=== PATIENT | female | born 1950 | race Caucasian/White ===

== ENCOUNTER 2022-05-12 09:21 | Outpatient (RCR) | payer MEDICARE, SELFPAY ==
[2022-05-12 09:43] LABS: Basophils Absolute Auto 0.09 K/uL (0.00-0.30); Basophils Percent Auto 1.1 % (0.0-3.0); Eosinophils Absolute Auto 0.42 K/uL (0.00-0.50); Eosinophils Percent Auto 5.2 % (0.0-7.0); Hematocrit 45.6 % (33.0-51.0); Hemoglobin* 13.8 gm/dL (12.0-16.0); Immature Granulocytes Abs Auto 0.02 K/uL (0.00-0.30); Lymphocytes Percent Auto 18.9 % (20-44); Mean Corpuscular HGB Conc 30 gm/dL (32-36); Mean Corpuscular Hemoglobin 24 pg (26-34); Mean Corpuscular Volume 78 fL (80-100); Monocytes Percent Auto 5.1 % (0.0-11.0); Neutrophils Percent Auto 69.5 % (42.0-72.0); Platelet Count* 286 K/uL (140-440); RDW Coefficient of Variation % 19.8 % (11.5-15.5); Red Blood Count 5.82 m/uL (4.00-5.20); White Blood Count* 8.06 K/uL (4.50-11.00)
[2022-05-12 09:46] LABS: Slide Review Reflex No
== END 2022-05-18 23:59 | disposition home or self-care (01) ==
LOC: CCIC 09:21
PROVIDERS: Internal Medicine Hematology & Oncology; PCP Family Medicine; Visit Provider Internal Medicine Medical Oncology
DX: D45 Polycythemia vera (principal)
CPT/HCPCS: 36415; 85025; 99195; 99212; 99214; 99215

== ENCOUNTER 2022-12-08 13:15 | Outpatient (RCR) | payer MEDICARE, SELFPAY ==
[2022-06-20 13:17] LABS: Basophils Absolute Auto 0.09 K/uL (0.00-0.30); Eosinophils Absolute Auto 0.36 K/uL (0.00-0.50); Eosinophils Percent Auto 3.8 % (0.0-7.0); Hematocrit 43.6 % (33.0-51.0); Hemoglobin* 13.2 gm/dL (12.0-16.0); Immature Granulocytes Abs Auto 0.03 K/uL (0.00-0.30); Lymphocytes Absolute Auto 2.04 K/uL (0.90-2.90); Lymphocytes Percent Auto 21.8 % (20-44); Mean Corpuscular HGB Conc 30 gm/dL (32-36); Mean Corpuscular Hemoglobin 24 pg (26-34); Mean Corpuscular Volume 79 fL (80-100); Monocytes Percent Auto 6.1 % (0.0-11.0); Neutrophils Absolute Auto 6.28 K/uL (1.7-7.0); Platelet Count* 293 K/uL (140-440); RDW Coefficient of Variation % 17.6 % (11.5-15.5); Red Blood Count 5.55 m/uL (4.00-5.20); White Blood Count* 9.37 K/uL (4.50-11.00)
[2022-06-20 13:20] LABS: Slide Review Reflex No
[2022-08-01 13:14] LABS: Hematocrit 46.3 % (33.0-51.0); Hemoglobin* 14.2 gm/dL (12.0-16.0); Mean Corpuscular HGB Conc 31 gm/dL (32-36); Mean Corpuscular Hemoglobin 24 pg (26-34); Mean Corpuscular Volume 79 fL (80-100); Platelet Count* 304 K/uL (140-440); Red Blood Count 5.84 m/uL (4.00-5.20); White Blood Count* 8.29 K/uL (4.50-11.00)
[2022-08-01 13:15] LABS: Slide Review Reflex No
[2022-09-19 13:21] LABS: Hematocrit 42.3 % (33.0-51.0); Hemoglobin* 12.7 gm/dL (12.0-16.0); Mean Corpuscular HGB Conc 30 gm/dL (32-36); Mean Corpuscular Hemoglobin 24 pg (26-34); Mean Corpuscular Volume 79 fL (80-100); Platelet Count* 287 K/uL (140-440); Red Blood Count 5.36 m/uL (4.00-5.20); White Blood Count* 9.07 K/uL (4.50-11.00)
[2022-09-19 13:26] LABS: Slide Review Reflex No
[2022-10-27 13:50] LABS: Hematocrit 44.8 % (33.0-51.0); Hemoglobin* 13.6 gm/dL (12.0-16.0); Mean Corpuscular HGB Conc 30 gm/dL (32-36); Mean Corpuscular Hemoglobin 24 pg (26-34); Mean Corpuscular Volume 79 fL (80-100); Platelet Count* 305 K/uL (140-440); Red Blood Count 5.65 m/uL (4.00-5.20); White Blood Count* 9.05 K/uL (4.50-11.00)
[2022-10-27 13:52] LABS: Slide Review Reflex No
--- NOTE | 2022-10-31 08:43 | ONC.NURNOTE ---
Reports some constipation added metamucil per Dr Aguilar which is working only fair suggested to try Miralax reports no other concerns with hydrea continue same dose next lab and provider appt schedule
[2022-12-08 13:24] LABS: Basophils Absolute Auto 0.08 K/uL (0.00-0.30); Basophils Percent Auto 0.8 % (0.0-3.0); Eosinophils Absolute Auto 0.36 K/uL (0.00-0.50); Eosinophils Percent Auto 3.6 % (0.0-7.0); Hematocrit 46.1 % (33.0-51.0); Immature Granulocytes Abs Auto 0.02 K/uL (0.00-0.30); Immature Granulocytes Pct Auto 0.2 %; Lymphocytes Absolute Auto 2.07 K/uL (0.90-2.90); Lymphocytes Percent Auto 20.4 % (20-44); Mean Corpuscular HGB Conc 30 gm/dL (32-36); Mean Corpuscular Hemoglobin 24 pg (26-34); Mean Corpuscular Volume 79 fL (80-100); Monocytes Percent Auto 6.4 % (0.0-11.0); Neutrophils Absolute Auto 6.95 K/uL (1.7-7.0); Neutrophils Percent Auto 68.6 % (42.0-72.0); Platelet Count* 331 K/uL (140-440); RDW Coefficient of Variation % 18.4 % (11.5-15.5); Red Blood Count 5.85 m/uL (4.00-5.20); White Blood Count* 10.13 K/uL (4.50-11.00)
[2022-12-08 13:32] LABS: Slide Review Reflex No
[2022-12-08 13:42] LABS: Chloride* 102 mmol/L (96-114); Potassium* 3.7 mmol/L (3.6-5.1); Sodium* 139 mmol/L (135-149)
[2022-12-08 13:45] LABS: Blood Urea Nitrogen* 15 mg/dL (7-30); Calcium* 9.2 mg/dL (8.4-10.6); Carbon Dioxide* 30 mmol/L (20-32); Creatinine* 0.7 mg/dL (0.5-1.5); Estimated Glomerular Filt Rate 92 ml/min; Glucose* 91 mg/dL (60-115)
== END 2022-12-17 23:59 | disposition home or self-care (01) ==
LOC: CCIC 13:15
PROVIDERS: Clinical Nurse Specialist; PCP Family Medicine; Referring Provider Family Medicine; Visit Provider Internal Medicine Medical Oncology
DX: D45 Polycythemia vera (principal)
CPT/HCPCS: 36415; 80048; 85025; 85027; 99195; 99212; 99214

== ENCOUNTER 2023-04-29 09:10 | Outpatient (CLI) | payer MEDICARE, SELFPAY | END 2023-04-29 09:11 | disposition home or self-care (01) | LOC: NFLDREF 04-30 07:43 | PROVIDERS: PCP Family Medicine; Referring Provider Family Medicine; Visit Provider Family Medicine | DX: E78.00 Pure hypercholesterolemia, unspecified (principal); I10 Essential (primary) hypertension | CPT/HCPCS: 80053; 80061 ==

== ENCOUNTER 2023-07-07 13:00 | Outpatient (RCR) | payer MEDICARE, SELFPAY ==
[2023-01-19 14:23] LABS: Basophils Absolute Auto 0.07 K/uL (0.00-0.30); Basophils Percent Auto 0.7 % (0.0-3.0); Eosinophils Percent Auto 4.2 % (0.0-7.0); Hematocrit 46.5 % (33.0-51.0); Hemoglobin* 14.2 gm/dL (12.0-16.0); Immature Granulocytes Abs Auto 0.11 K/uL (0.00-0.30); Immature Granulocytes Pct Auto 1.2 %; Lymphocytes Absolute Auto 2.06 K/uL (0.90-2.90); Lymphocytes Percent Auto 21.7 % (20-44); Mean Corpuscular HGB Conc 31 gm/dL (32-36); Mean Corpuscular Hemoglobin 24 pg (26-34); Mean Corpuscular Volume 78 fL (80-100); Monocytes Percent Auto 5.3 % (0.0-11.0); Neutrophils Absolute Auto 6.37 K/uL (1.7-7.0); Neutrophils Percent Auto 66.9 % (42.0-72.0); Platelet Count* 408 K/uL (140-440); RDW Coefficient of Variation % 19.1 % (11.5-15.5); Red Blood Count 5.97 m/uL (4.00-5.20); White Blood Count* 9.51 K/uL (4.50-11.00)
[2023-01-19 14:24] LABS: Slide Review Reflex No
[2023-01-19 14:41] LABS: Albumin* 4.6 g/dL (3.3-5.0)
[2023-01-19 14:42] LABS: Chloride* 101 mmol/L (96-114); Potassium* 3.5 mmol/L (3.6-5.1); Sodium* 137 mmol/L (135-149)
[2023-01-19 14:44] LABS: Bilirubin Total* 0.6 mg/dL (0.1-1.5); Carbon Dioxide* 28 mmol/L (20-32); Cholesterol* 221 mg/dL (90-199); Creatinine* 0.7 mg/dL (0.5-1.5); Estimated Glomerular Filt Rate 92 ml/min
[2023-01-19 14:45] LABS: Alanine Aminotransferase* 22 U/L (4-35); Alkaline Phosphatase* 85 U/L (40-150); Aspartate Amino Transferase* 30 U/L (12-35); Blood Urea Nitrogen* 16 mg/dL (7-30); Calcium* 9.2 mg/dL (8.4-10.6); Glucose* 89 mg/dL (60-115); HDL Cholesterol* 47 mg/dL (>=50); LDL Cholesterol Calculated 126 mg/dL (<100); Total Protein* 7.7 g/dL (6.0-8.3); Triglycerides* 238 mg/dL (40-149)
[2023-03-03 14:21] LABS: Hematocrit 44.8 % (33.0-51.0); Hemoglobin* 13.6 gm/dL (12.0-16.0); Mean Corpuscular HGB Conc 30 gm/dL (32-36); Mean Corpuscular Hemoglobin 24 pg (26-34); Mean Corpuscular Volume 80 fL (80-100); Platelet Count* 262 K/uL (140-440); Red Blood Count 5.63 m/uL (4.00-5.20); White Blood Count* 8.69 K/uL (4.50-11.00)
[2023-03-03 14:22] LABS: Slide Review Reflex No
--- NOTE | 2023-04-27 15:24 | ONC.NURNOTE ---
Received refill request for Hydroxyzine 25mg 1 tab TID. Called pt; she has noted significant improvement of itching on this medicine and continues to take it. She has plenty left and does not need a refill at this time; she will call us when she has ~1 week's worth left.
[2023-05-01 11:25] LABS: Basophils Absolute Auto 0.08 K/uL (0.00-0.30); Basophils Percent Auto 0.9 % (0.0-3.0); Eosinophils Absolute Auto 0.34 K/uL (0.00-0.50); Hematocrit 47.6 % (33.0-51.0); Hemoglobin* 14.6 gm/dL (12.0-16.0); Immature Granulocytes Abs Auto 0.01 K/uL (0.00-0.30); Immature Granulocytes Pct Auto 0.1 %; Lymphocytes Percent Auto 17.6 % (20-44); Mean Corpuscular HGB Conc 31 gm/dL (32-36); Mean Corpuscular Hemoglobin 25 pg (26-34); Mean Corpuscular Volume 80 fL (80-100); Neutrophils Percent Auto 72.4 % (42.0-72.0); Platelet Count* 281 K/uL (140-440); RDW Coefficient of Variation % 19.9 % (11.5-15.5); Red Blood Count 5.92 m/uL (4.00-5.20); White Blood Count* 8.53 K/uL (4.50-11.00)
[2023-05-01 11:47] LABS: Slide Review Reflex Yes
[2023-05-01 11:49] LABS: Slide Review Acceptable Review (Acceptable)
[2023-07-07 13:15] LABS: Basophils Absolute Auto 0.09 K/uL (0.00-0.30); Eosinophils Percent Auto 4.2 % (0.0-7.0); Hematocrit 44.7 % (33.0-51.0); Hemoglobin* 13.7 gm/dL (12.0-16.0); Immature Granulocytes Abs Auto 0.01 K/uL (0.00-0.30); Immature Granulocytes Pct Auto 0.1 %; Lymphocytes Percent Auto 17.7 % (20-44); Mean Corpuscular HGB Conc 31 gm/dL (32-36); Mean Corpuscular Hemoglobin 24 pg (26-34); Mean Corpuscular Volume 79 fL (80-100); Monocytes Percent Auto 4.2 % (0.0-11.0); Neutrophils Percent Auto 72.8 % (42.0-72.0); Platelet Count* 267 K/uL (140-440); Red Blood Count 5.65 m/uL (4.00-5.20); White Blood Count* 9.42 K/uL (4.50-11.00)
[2023-07-07 13:17] LABS: Slide Review Reflex No
[2023-07-07 13:33] LABS: Albumin* 4.4 g/dL (3.3-5.0); Chloride* 104 mmol/L (96-114); Potassium* 3.9 mmol/L (3.6-5.1); Sodium* 136 mmol/L (135-149)
[2023-07-07 13:35] LABS: Creatinine* 0.8 mg/dL (0.5-1.5); Estimated Glomerular Filt Rate 79 ml/min
[2023-07-07 13:36] LABS: Alanine Aminotransferase* 29 U/L (4-35); Alkaline Phosphatase* 87 U/L (40-150); Anion Gap 5 mEq/L (7-15); Aspartate Amino Transferase* 37 U/L (12-35); Bilirubin Total* 0.6 mg/dL (0.1-1.5); Blood Urea Nitrogen* 20 mg/dL (7-30); Calcium* 9.6 mg/dL (8.4-10.6); Carbon Dioxide* 27 mmol/L (20-32); Glucose* 93 mg/dL (60-115); Total Protein* 7.3 g/dL (6.0-8.3)
== END 2023-07-18 23:59 | disposition home or self-care (01) ==
LOC: CCIC 13:00
PROVIDERS: Clinical Nurse Specialist; Internal Medicine Medical Oncology; PCP Family Medicine; Referring Provider Family Medicine; Visit Provider Internal Medicine Hematology & Oncology
DX: D45 Polycythemia vera (principal)
CPT/HCPCS: 36415; 80053; 80061; 85025; 85027; 99195; 99212; 99213; 99214

== ENCOUNTER 2024-01-14 12:51 | Outpatient (CLI) | payer MEDICARE, SELFPAY ==
--- NOTE | 2024-01-14 13:00 | CT_ITS ---
Patient: JUAN ANTONIO WESTBROOK Facility:?[facility] Patient ID:?[id number] Site Patient ID:?[id number]. Site :?1950 Study:?CT-Chest W/O-01/14/2024 1:14:18 PM Ordering Physician:ANTHONY Final Report: INDICATION: Pulmonary nodule. TECHNIQUE: Noncontrast CT images of the chest. COMPARISON: Chest radiographs 01/06/2024. FINDINGS: Scarring/atelectasis within the right greater left lower lobes. No pleural effusion. Calcified granuloma left lower lobe posteriorly measuring 1.3 cm. No pulmonary nodules. Heart size is normal. No pericardial effusion. Coronary artery atherosclerotic calcifications. No mediastinal or hilar lymphadenopathy. Multiple hypoattenuating lesions in the liver, measuring up to 4.0 cm within the lateral right hepatic lobe (series 2, image 89), incompletely characterized though may represent cysts. Calcified granuloma in the spleen. Beam hardening artifact secondary to bilateral shoulder prostheses limits evaluation of adjacent structures. Exaggerated thoracic kyphosis. Multilevel thoracic spondylosis. No aggressive osseous lesions. IMPRESSION: 1. No pulmonary nodules or masses. There is a 1.3 cm calcified granuloma within the lower lobe of the left lung. 2. Mild scarring/atelectasis in the lower lobes of both lungs. Please note that all CT scans at this facility use dose modulation, iterative reconstruction, and/or weight-based dosing when appropriate to reduce radiation dose to as low as reasonably achievable. Dictated by Deangelo Spaulding MD @ 01/14/2024 9:43:24 PM Signed by:?Deangelo Spaulding MD @01/14/2024 9:43:24 PM (Electronic Signature)
== END 2024-01-14 12:52 | disposition home or self-care (01) ==
LOC: CT 12:52
PROVIDERS: PCP Family Medicine; Visit Provider Family Medicine
DX: R91.1 Solitary pulmonary nodule (principal); J98.11 Atelectasis
CPT/HCPCS: 71250

== ENCOUNTER 2024-02-11 14:50 | Outpatient (CLI) | payer MEDICARE, SELFPAY ==
--- NOTE | 2024-02-11 15:00 | XR_ITS ---
Patient: JUAN ANTONIO WESTBROOK Facility:?[facility] Patient ID:?[id number] Site Patient ID:?[id number]. Site :?1950 Study:?DEXA-Bone Density -02/11/2024 3:33:37 PM Ordering Physician:ANTHONY Final Report: DXA BONE MINERAL DENSITY STUDY Reason for exam: History of blood cancer, screening. Current height (in): 68.5. Weight (lb): 200.0. Menopause age: 43. Ethnicity: White. 1. Have you had a previous hip or vertebral fracture? Yes. 2. Have you had any fractures during your adult life which did not result from significant trauma (e.g., auto accident)? Yes. 3. Did either of your parents have a hip fracture? No. 4. Do you smoke? No. 5. Have you ever taken Glucocorticoids? No. 6. Do you have rheumatoid arthritis? No. 7. Do you have secondary osteoporosis? No. 8. Do you drink 3 or more alcoholic drinks per day? No. 9. Are you being treated for osteoporosis? No. 10. Have you ever taken any of the following medications: Actonel, Evista, Fosamax, Miacalcin, Reclast, Boniva, Forteo, HRT (i.e. estrogen/hormone therapy), Protelos, Prolia, Vitamin D, Calcium, other ? please specify. ANSWER: No. 11. Do you have any of the following medical conditions: Anorexia or bulimia, asthma or emphysema, end stage renal disease, hyperparathyroidism, any seizure disorders, cancer, inflammatory bowel diseases, hysterectomy, other ? please specify. ANSWER: Yes, cancer. 12. What was your maximum height (inches)? 70. 13. Do you perform weight bearing exercise regularly? No. 14. Do you regularly consume dairy products? Yes. 15. Do you drink caffeinated beverages? Yes. 16. At what age did your period start? 12. 17. Are you premenopausal? No. 18. How many full term pregnancies have you had? 2. 19. Have you ever missed your period for more than 6 months in a row (not including or menopause)? No. TECHNIQUE: Bone mineral density study was performed using the Acturis. FINDINGS: The results of the study expressed as bone mineral density (BMD) are as follows: Lumbar spine L1 to L4: BMD: 0.971 g/cm2. T-score: -0.7. Z-score: 1.5. Radius Left 33%: BMD: 0.669 g/cm2. T-score: -1.5. Z-score: 0.7. IMPRESSION: Osteopenia. ABE MOLINA M.D. TJI:darci D& [email or web address] be/Dictated by: Abe Molina MD @ 02/12/2024 1:44:00 PM Signed by:?Abe Molina MD @02/17/2024 4:15:46 PM (Electronic Signature)
== END 2024-02-11 14:51 | disposition home or self-care (01) ==
LOC: RAD 14:51
PROVIDERS: PCP Family Medicine; Visit Provider Family Medicine
DX: Z13.820 Encounter for screening for osteoporosis (principal); M85.88 Other specified disorders of bone density and structure, other site
CPT/HCPCS: 77080

== ENCOUNTER 2024-02-16 13:30 | Outpatient (RCR) | payer MEDICARE, SELFPAY ==
[2023-09-02 12:49] LABS: Basophils Absolute Auto 0.11 K/uL (0.00-0.30); Basophils Percent Auto 1.1 % (0.0-3.0); Eosinophils Absolute Auto 0.44 K/uL (0.00-0.50); Eosinophils Percent Auto 4.3 % (0.0-7.0); Hematocrit 49.2 % (33.0-51.0); Immature Granulocytes Abs Auto 0.02 K/uL (0.00-0.30); Immature Granulocytes Pct Auto 0.2 %; Lymphocytes Absolute Auto 2.11 K/uL (0.90-2.90); Lymphocytes Percent Auto 20.7 % (20-44); Mean Corpuscular HGB Conc 31 gm/dL (32-36); Mean Corpuscular Hemoglobin 24 pg (26-34); Mean Corpuscular Volume 80 fL (80-100); Monocytes Percent Auto 6.4 % (0.0-11.0); Neutrophils Absolute Auto 6.86 K/uL (1.7-7.0); Neutrophils Percent Auto 67.3 % (42.0-72.0); Platelet Count* 307 K/uL (140-440); RDW Coefficient of Variation % 20.1 % (11.5-15.5); Red Blood Count 6.18 m/uL (4.00-5.20); White Blood Count* 10.19 K/uL (4.50-11.00)
[2023-09-02 13:00] LABS: Slide Review Reflex Yes
[2023-09-02 13:14] LABS: Slide Review Acceptable Review (Acceptable)
[2023-09-02 13:19] LABS: Albumin* 4.5 g/dL (3.3-5.0); Chloride* 100 mmol/L (96-114)
[2023-09-02 13:20] LABS: Potassium* 3.8 mmol/L (3.6-5.1); Sodium* 137 mmol/L (135-149)
[2023-09-02 13:22] LABS: Alkaline Phosphatase* 82 U/L (40-150); Anion Gap 7 mEq/L (7-15); Aspartate Amino Transferase* 32 U/L (12-35); Bilirubin Total* 0.4 mg/dL (0.1-1.5); Carbon Dioxide* 30 mmol/L (20-32); Creatinine* 0.6 mg/dL (0.5-1.5); Estimated Glomerular Filt Rate 96 ml/min; Lactate Dehydrogenase* 188 U/L (120-246); Total Protein* 7.4 g/dL (6.0-8.3)
[2023-09-02 13:23] LABS: Alanine Aminotransferase* 25 U/L (4-35); Blood Urea Nitrogen* 18 mg/dL (7-30); Calcium* 9.4 mg/dL (8.4-10.6); Glucose* 105 mg/dL (60-115)
[2023-10-28 13:13] LABS: Basophils Percent Auto 1.2 % (0.0-3.0); Eosinophils Absolute Auto 0.31 K/uL (0.00-0.50); Eosinophils Percent Auto 3.8 % (0.0-7.0); Hematocrit 45.4 % (33.0-51.0); Hemoglobin* 13.9 gm/dL (12.0-16.0); Immature Granulocytes Abs Auto 0.01 K/uL (0.00-0.30); Immature Granulocytes Pct Auto 0.1 %; Lymphocytes Percent Auto 22.2 % (20-44); Mean Corpuscular HGB Conc 31 gm/dL (32-36); Mean Corpuscular Hemoglobin 25 pg (26-34); Mean Corpuscular Volume 80 fL (80-100); Monocytes Percent Auto 5.4 % (0.0-11.0); Neutrophils Absolute Auto 5.43 K/uL (1.7-7.0); Neutrophils Percent Auto 67.3 % (42.0-72.0); Platelet Count* 281 K/uL (140-440); RDW Coefficient of Variation % 19.5 % (11.5-15.5); Red Blood Count 5.66 m/uL (4.00-5.20); White Blood Count* 8.09 K/uL (4.50-11.00)
[2023-10-28 13:15] LABS: Slide Review Reflex No
[2023-10-28 13:33] LABS: Albumin* 4.7 g/dL (3.3-5.0)
[2023-10-28 13:34] LABS: Chloride* 102 mmol/L (96-114); Potassium* 3.7 mmol/L (3.6-5.1); Sodium* 137 mmol/L (135-149)
[2023-10-28 13:36] LABS: Alkaline Phosphatase* 88 U/L (40-150); Anion Gap 3 mEq/L (7-15); Aspartate Amino Transferase* 30 U/L (12-35); Bilirubin Total* 0.5 mg/dL (0.1-1.5); Carbon Dioxide* 32 mmol/L (20-32); Creatinine* 0.7 mg/dL (0.5-1.5); Estimated Glomerular Filt Rate 92 ml/min; Lactate Dehydrogenase* 182 U/L (120-246); Total Protein* 7.5 g/dL (6.0-8.3)
[2023-10-28 13:37] LABS: Alanine Aminotransferase* 23 U/L (4-35); Blood Urea Nitrogen* 18 mg/dL (7-30); Calcium* 9.4 mg/dL (8.4-10.6); Glucose* 96 mg/dL (60-115)
[2024-02-16 13:55] LABS: Basophils Percent Auto 1.2 % (0.0-3.0); Eosinophils Percent Auto 3.7 % (0.0-7.0); Hemoglobin* 14.4 gm/dL (12.0-16.0); Immature Granulocytes Abs Auto 0.01 K/uL (0.00-0.30); Immature Granulocytes Pct Auto 0.1 %; Lymphocytes Absolute Auto 1.73 K/uL (0.90-2.90); Lymphocytes Percent Auto 21.2 % (20-44); Mean Corpuscular HGB Conc 31 gm/dL (32-36); Mean Corpuscular Hemoglobin 26 pg (26-34); Mean Corpuscular Volume 85 fL (80-100); Monocytes Percent Auto 5.1 % (0.0-11.0); Neutrophils Absolute Auto 5.61 K/uL (1.7-7.0); Neutrophils Percent Auto 68.7 % (42.0-72.0); Platelet Count* 376 K/uL (140-440); RDW Coefficient of Variation % 19.6 % (11.5-15.5); Red Blood Count 5.52 m/uL (4.00-5.20); White Blood Count* 8.17 K/uL (4.50-11.00)
[2024-02-16 14:13] LABS: Slide Review Reflex No
[2024-02-16 14:20] LABS: Albumin* 4.5 g/dL (3.3-5.0)
[2024-02-16 14:21] LABS: Chloride* 104 mmol/L (96-114); Potassium* 3.6 mmol/L (3.6-5.1); Sodium* 138 mmol/L (135-149)
[2024-02-16 14:23] LABS: Anion Gap 6 mEq/L (7-15); Aspartate Amino Transferase* 42 U/L (12-35); Bilirubin Total* 0.6 mg/dL (0.1-1.5); Carbon Dioxide* 28 mmol/L (20-32); Creatinine* 0.6 mg/dL (0.5-1.5); Estimated Glomerular Filt Rate 95 ml/min; Total Protein* 7.4 g/dL (6.0-8.3)
[2024-02-16 14:24] LABS: Alanine Aminotransferase* 29 U/L (4-35); Alkaline Phosphatase* 97 U/L (40-150); Blood Urea Nitrogen* 19 mg/dL (7-30); Calcium* 9.2 mg/dL (8.4-10.6); Glucose* 94 mg/dL (60-115); Lactate Dehydrogenase* 213 U/L (120-246)
== END 2024-02-29 23:59 | disposition home or self-care (01) ==
LOC: CCIC 13:30
PROVIDERS: PCP Family Medicine; Referring Provider Family Medicine; Visit Provider Internal Medicine Hematology & Oncology
DX: D45 Polycythemia vera (principal); D64.9 Anemia, unspecified; L29.9 Pruritus, unspecified; R23.2 Flushing
CPT/HCPCS: 36415; 80053; 83615; 84443; 85025; 99195; 99212; 99213; 99214; G0463

== ENCOUNTER 2024-02-24 10:35 | Outpatient (RCR) | payer MEDICARE, SELFPAY ==
--- NOTE | 2024-02-24 13:07 | PT.OPE ---
PT [place] Outpatient Eval PT [facility] Outpatient Eval Start: 02/24/24 11:39 Freq: Status: Active Protocol: Document 02/24/24 11:39 BMS (Rec: 02/24/24 11:48 BMS [id number]) E-signed By Arline Elias PT Physical Therapy Outpatient Evaluation Insurance Information Insurance Name Medicare B Provider Fax Number internal Medical Diagnosis chest wall pain R07.89 Referring MD Kenton Aguilar MD Subjective Subjective fell Objective Range of Motion B shoulder WFL AROM, lacking endrange flex and L IR shoulder trunk mobility flex, ext, B SB and B rotation painfree and WFL, tightness through back and HS with forward bend Balance & Gait stride short and mild to mod path deviation. imbalance noted and lowguard gait pattern Posture head forward, B shoulders rounded forward and scap abduction significant. inc thoracic kyphosis with cervical ext compensation. Sensation/Reflexes not assessed this date Functional Test Performed & Score Activities-specific Balance Confidence (ABC) Scale Summary 1. Walk around the house? Confidence walking around the house: 90 / 100 (90 points) 2. Walk up or down stairs? Confidence walking up or down stairs: 90 / 100 (90 points) 3. Bend over and picker tender helper a slipper from the front of a closet floor? Confidence bending over (e.g. to picker tender helper slipper): 100 / 100 (100 points) 4. Reach for a small can off a shelf at eye level? Confidence reaching for a can at eye level: 100 / 100 (100 points) 5. Stand on your tip toes and reach for something above your head? Confidence standing on tip toes, reaching above head: 90 / 100 (90 points) 6. Stand on a chair and reach for something? Confidence standing on a chair and reachin / 100 (0 points) 7. Sweep the floor? Confidence sweeping the floor: 100 / 100 (100 points) 8. Walk outside the house to a car parked in the driveway? Confidence walking outside home to car in driveway: 100 / 100 (100 points) 9. Get into or out of a car? Confidence getting into or out of car: 90 / 100 (90 points) 10. Walk across a parking lot to the mall? Confidence walking across parking lot to mall: 90 / 100 (90 points) 11. Walk up or down a ramp? Confidence walking down a ramp : 90 / 100 (90 points) 12. Walk in a crowded mall where people rapidly walk past you? Confidence walking in crowded mall with people walking rapidly: 90 / 100 (90 points) 13. Are bumped into by people as you walk through the mall? Confidence when bumped into by people walking at mall: 90 / 100 (90 points) 14. Step onto or off of an escalator while you are holding onto a railing? Confidence stepping on or off escalator holding railin / 100 (80 points) 15. Step on/off escalator holding parcels so cannot hold railing? Confidence stepping on or off escalator not holding railing : 80 / 100 (80 points) 16. Walk outside on icy sidewalks? Confidence walking on icy sidewalks: 0 / 100 (0 points) The tools listed on this website do not substitute for the informed opinion of a licensed physician or other health care provider. All scores should be re- checked. Please see our full Terms of Use. Total ABC score: 1280/1600=80.0 percent. Assessment Assessment/Impression Patient is pleasant 73 yo female known to this therapist for prior episodes of care for B TSA (and one revision) and B JOSÉ. She presents today ~2months s/p fall. Order is for chest wall pain, dated . She was previously scheduled and had to reschedule that evaluation for patient reasons. She presents today stating that her chest pain is low, right under left breast and into left shoulder as well. She demonstrates AROM B shoulders and trunk WFL and painfree in all directions. She does have known weakness in B UE (states she was told by surgeon she has a 5# lifting restriction due to shoulder replacements and L TSA revision) and balance concerns. She does present today in low heel and demo off balance, states she is aware of this but does not feel it is a problem, despite her fall in December, states she does not know why that happened. After brief exam and several comments by patient stating she feels she is doing really pretty well therapist instructed patient in what PT can offer (shoulder and rib pain, tissue mobility, exercises, balance assessment and balance/gait training to reduce fall risk) and patient declines. She chooses not to proceed with eval and treat today, was instructed that I am happy to see her at any time, to call or contact Dr Aguilar for order should she change her mind. No charge for today's visit. Plan of Care Coordination/Communication With Referral Source Evaluation Billing PT Eval No Charge Yes Complexity Not Applicable Certification Information Physician Comment/Change : Physician NPI Number #
== END 2024-06-23 23:59 | disposition home or self-care (01) ==
PROVIDERS: PCP Family Medicine; Visit Provider Family Medicine
DX: Z53.20 Procedure and treatment not carried out because of patient's decision for unspecified reasons (principal)

== ENCOUNTER 2024-04-11 14:28 | Outpatient (CLI) | payer MEDICARE, SELFPAY ==
--- NOTE | 2024-04-11 14:40 | CRLHL7_ITS ---
For Patients: As a result of the Century Cures Act, medical imaging exams and procedure reports are released immediately into your electronic medical record. You may view this report before your referring provider. If you have questions, please contact your health care provider. BILATERAL SCREENING MAMMOGRAM WITH COMPUTER-AIDED DETECTION AND TOMOSYNTHESIS TECHNIQUE: CC and MLO views were obtained. These mammographic images have been obtained using full-field digital technique. These mammographic images were interpreted with the benefit of computer-aided detection. Breast Tomosynthesis was used in this interpretation. COMPARISON FILM: Over 10 years ago, not available. FINDINGS: There are scattered areas of fibroglandular density. IMPRESSION: There is no radiographic evidence for malignancy. ASSESSMENT: BI-RADS Category 1: Negative RECOMMENDATION: Routine screening mammogram in 1 year. A lay language report of this examination will be provided to the patient. Ambrosio Hoffmann M.D. Diagnostic Radiologist [email or web address] SP/Dictated by: Ambrosio Hoffmann MD @ 04/18/2024 12:53:00 PM (Electronically Signed)
== END 2024-04-11 14:29 | disposition home or self-care (01) ==
LOC: MAMMO 14:29
PROVIDERS: PCP Family Medicine; Visit Provider Family Medicine
DX: Z12.31 Encounter for screening mammogram for malignant neoplasm of breast (principal)
CPT/HCPCS: 77063; 77067

== ENCOUNTER 2024-08-23 12:00 | Outpatient (RCR) | payer MEDICARE, SELFPAY ==
[2024-04-19 13:00] LABS: Basophils Absolute Auto 0.06 K/uL (0.00-0.30); Basophils Percent Auto 0.8 % (0.0-3.0); Eosinophils Absolute Auto 0.26 K/uL (0.00-0.50); Eosinophils Percent Auto 3.5 % (0.0-7.0); Hematocrit 44.6 % (33.0-51.0); Hemoglobin* 13.8 gm/dL (12.0-16.0); Immature Granulocytes Abs Auto 0.02 K/uL (0.00-0.30); Immature Granulocytes Pct Auto 0.3 %; Lymphocytes Absolute Auto 1.51 K/uL (0.90-2.90); Lymphocytes Percent Auto 20.5 % (20-44); Mean Corpuscular HGB Conc 31 gm/dL (32-36); Mean Corpuscular Hemoglobin 27 pg (26-34); Mean Corpuscular Volume 87 fL (80-100); Monocytes Percent Auto 5.7 % (0.0-11.0); Neutrophils Absolute Auto 5.09 K/uL (1.7-7.0); Neutrophils Percent Auto 69.2 % (42.0-72.0); Platelet Count* 310 K/uL (140-440); RDW Coefficient of Variation % 18.7 % (11.5-15.5); Red Blood Count 5.12 m/uL (4.00-5.20); White Blood Count* 7.36 K/uL (4.50-11.00)
[2024-04-19 13:11] LABS: Slide Review Reflex No
[2024-04-19 13:13] LABS: Albumin* 4.5 g/dL (3.3-5.0); Chloride* 103 mmol/L (96-114)
[2024-04-19 13:14] LABS: Potassium* 3.8 mmol/L (3.6-5.1); Sodium* 138 mmol/L (135-149)
[2024-04-19 13:16] LABS: Alkaline Phosphatase* 89 U/L (40-150); Anion Gap 7 mEq/L (7-15); Aspartate Amino Transferase* 29 U/L (12-35); Bilirubin Total* 0.5 mg/dL (0.1-1.5); Blood Urea Nitrogen* 19 mg/dL (7-30); Calcium* 9.4 mg/dL (8.4-10.6); Carbon Dioxide* 28 mmol/L (20-32); Creatinine* 0.8 mg/dL (0.5-1.5); Estimated Glomerular Filt Rate 78 ml/min; Glucose* 92 mg/dL (60-115); Lactate Dehydrogenase* 184 U/L (120-246); Total Protein* 7.1 g/dL (6.0-8.3)
[2024-04-19 13:17] LABS: Alanine Aminotransferase* 19 U/L (4-35); Cholesterol* 140 mg/dL (90-199); HDL Cholesterol* 49 mg/dL (>=50); LDL Cholesterol Calculated 75 mg/dL (<100); Triglycerides* 78 mg/dL (40-149)
[2024-06-21 13:28] LABS: Basophils Absolute Auto 0.07 K/uL (0.00-0.30); Eosinophils Absolute Auto 0.28 K/uL (0.00-0.50); Eosinophils Percent Auto 3.8 % (0.0-7.0); Hematocrit 46.9 % (33.0-51.0); Hemoglobin* 14.7 gm/dL (12.0-16.0); Immature Granulocytes Abs Auto 0.01 K/uL (0.00-0.30); Immature Granulocytes Pct Auto 0.1 %; Lymphocytes Absolute Auto 1.67 K/uL (0.90-2.90); Lymphocytes Percent Auto 22.8 % (20-44); Mean Corpuscular HGB Conc 31 gm/dL (32-36); Mean Corpuscular Hemoglobin 29 pg (26-34); Mean Corpuscular Volume 91 fL (80-100); Monocytes Percent Auto 4.8 % (0.0-11.0); Neutrophils Absolute Auto 4.96 K/uL (1.7-7.0); Neutrophils Percent Auto 67.5 % (42.0-72.0); Platelet Count* 228 K/uL (140-440); RDW Coefficient of Variation % 19.7 % (11.5-15.5); Red Blood Count 5.14 m/uL (4.00-5.20); White Blood Count* 7.34 K/uL (4.50-11.00)
[2024-06-21 13:29] LABS: Slide Review Reflex No
[2024-06-21 13:42] LABS: Albumin* 4.6 g/dL (3.3-5.0); Chloride* 101 mmol/L (96-114); Potassium* 3.7 mmol/L (3.6-5.1); Sodium* 136 mmol/L (135-149)
[2024-06-21 13:44] LABS: Creatinine* 0.7 mg/dL (0.5-1.5); Estimated Glomerular Filt Rate 92 ml/min
[2024-06-21 13:45] LABS: Alanine Aminotransferase* 19 U/L (4-35); Alkaline Phosphatase* 86 U/L (40-150); Anion Gap 4 mEq/L (7-15); Aspartate Amino Transferase* 29 U/L (12-35); Bilirubin Total* 0.6 mg/dL (0.1-1.5); Blood Urea Nitrogen* 16 mg/dL (7-30); Carbon Dioxide* 31 mmol/L (20-32); Glucose* 91 mg/dL (60-115); Lactate Dehydrogenase* 185 U/L (120-246)
[2024-06-21 13:46] LABS: Calcium* 9.4 mg/dL (8.4-10.6)
--- NOTE | 2024-06-21 13:55 | ONC.NURNOTE ---
CBC reviewed with Dr Pa and Yvette dose change ordered by Dr Pa and reviewed with patient next appts scheduled teach back for dose change
[2024-08-23 13:01] LABS: Basophils Absolute Auto 0.05 K/uL (0.00-0.30); Basophils Percent Auto 0.7 % (0.0-3.0); Eosinophils Absolute Auto 0.24 K/uL (0.00-0.50); Eosinophils Percent Auto 3.4 % (0.0-7.0); Hemoglobin* 14.4 gm/dL (12.0-16.0); Immature Granulocytes Abs Auto 0.02 K/uL (0.00-0.30); Immature Granulocytes Pct Auto 0.3 %; Lymphocytes Absolute Auto 1.64 K/uL (0.90-2.90); Lymphocytes Percent Auto 23.4 % (20-44); Mean Corpuscular HGB Conc 32 gm/dL (32-36); Mean Corpuscular Hemoglobin 31 pg (26-34); Mean Corpuscular Volume 95 fL (80-100); Monocytes Percent Auto 6.3 % (0.0-11.0); Neutrophils Absolute Auto 4.62 K/uL (1.7-7.0); Neutrophils Percent Auto 65.9 % (42.0-72.0); Platelet Count* 219 K/uL (140-440); RDW Coefficient of Variation % 16.5 % (11.5-15.5); Red Blood Count 4.72 m/uL (4.00-5.20); White Blood Count* 7.01 K/uL (4.50-11.00)
[2024-08-23 13:08] LABS: Albumin* 4.3 g/dL (3.3-5.0); Chloride* 99 mmol/L (96-114); Potassium* 3.8 mmol/L (3.6-5.1); Sodium* 136 mmol/L (135-149)
[2024-08-23 13:10] LABS: Anion Gap 6 mEq/L (7-15); Bilirubin Total* 0.5 mg/dL (0.1-1.5); Carbon Dioxide* 31 mmol/L (20-32); Creatinine* 0.8 mg/dL (0.5-1.5); Estimated Glomerular Filt Rate 78 ml/min; Total Protein* 6.8 g/dL (6.0-8.3)
[2024-08-23 13:11] LABS: Alanine Aminotransferase* 16 U/L (4-35); Alkaline Phosphatase* 73 U/L (40-150); Aspartate Amino Transferase* 27 U/L (12-35); Blood Urea Nitrogen* 20 mg/dL (7-30); Calcium* 9.3 mg/dL (8.4-10.6); Glucose* 79 mg/dL (60-115); Lactate Dehydrogenase* 198 U/L (120-246)
[2024-08-23 13:14] LABS: Slide Review Reflex No
== END 2024-10-16 23:59 | disposition home or self-care (01) ==
LOC: CCIC 12:00
PROVIDERS: PCP Family Medicine; Referring Provider Family Medicine; Visit Provider Internal Medicine Hematology & Oncology
DX: D45 Polycythemia vera (principal); L29.9 Pruritus, unspecified; R23.2 Flushing; E78.00 Pure hypercholesterolemia, unspecified
CPT/HCPCS: 36415; 80053; 80061; 83615; 85025; 99213; 99214; G0463

== ENCOUNTER 2025-02-20 12:45 | Outpatient (RCR) | payer MEDICARE, SELFPAY ==
[2024-10-25 12:40] LABS: Hematocrit 45.7 % (33.0-51.0); Hemoglobin* 14.7 gm/dL (12.0-16.0); Immature Granulocytes Abs Auto 0.02 K/uL (0.00-0.30); Immature Granulocytes Pct Auto 0.3 %; Lymphocytes Absolute Auto 1.39 K/uL (0.90-2.90); Mean Corpuscular HGB Conc 32 gm/dL (32-36); Mean Corpuscular Hemoglobin 31 pg (26-34); Mean Corpuscular Volume 95 fL (80-100); RDW Coefficient of Variation % 15.6 % (11.5-15.5); Red Blood Count 4.80 m/uL (4.00-5.20); White Blood Count* 6.37 K/uL (4.50-11.00)
[2024-10-25 12:53] LABS: Albumin* 4.4 g/dL (3.3-5.0); Chloride* 100 mmol/L (96-114); Potassium* 3.5 mmol/L (3.6-5.1); Slide Review Reflex No; Sodium* 135 mmol/L (135-149)
[2024-10-25 12:55] LABS: Bilirubin Total* 0.7 mg/dL (0.1-1.5); Creatinine* 0.6 mg/dL (0.5-1.5); Estimated Glomerular Filt Rate 95 ml/min
[2024-10-25 12:56] LABS: Alanine Aminotransferase* 24 U/L (4-35); Alkaline Phosphatase* 77 U/L (40-150); Anion Gap 5 mEq/L (7-15); Aspartate Amino Transferase* 29 U/L (12-35); Blood Urea Nitrogen* 19 mg/dL (7-30); Carbon Dioxide* 30 mmol/L (20-32); Glucose* 86 mg/dL (60-115); Total Protein* 6.8 g/dL (6.0-8.3)
[2024-10-25 12:57] LABS: Calcium* 9.1 mg/dL (8.4-10.6)
[2024-12-19 13:24] LABS: Hematocrit 46.3 % (33.0-51.0); Hemoglobin* 15.1 gm/dL (12.0-16.0); Immature Granulocytes Abs Auto 0.02 K/uL (0.00-0.30); Immature Granulocytes Pct Auto 0.3 %; Lymphocytes Absolute Auto 1.42 K/uL (0.90-2.90); Mean Corpuscular HGB Conc 33 gm/dL (32-36); Mean Corpuscular Hemoglobin 31 pg (26-34); Mean Corpuscular Volume 96 fL (80-100); RDW Coefficient of Variation % 15.6 % (11.5-15.5); Red Blood Count 4.83 m/uL (4.00-5.20); White Blood Count* 6.79 K/uL (4.50-11.00)
[2024-12-19 13:26] LABS: Slide Review Reflex No
[2024-12-19 13:40] LABS: Albumin* 4.5 g/dL (3.3-5.0); Chloride* 100 mmol/L (96-114)
[2024-12-19 13:41] LABS: Potassium* 3.7 mmol/L (3.6-5.1); Sodium* 137 mmol/L (135-149)
[2024-12-19 13:43] LABS: Alanine Aminotransferase* 19 U/L (4-35); Alkaline Phosphatase* 75 U/L (40-150); Anion Gap 9 mEq/L (7-15); Aspartate Amino Transferase* 27 U/L (12-35); Bilirubin Total* 0.7 mg/dL (0.1-1.5); Blood Urea Nitrogen* 22 mg/dL (7-30); Calcium* 9.3 mg/dL (8.4-10.6); Carbon Dioxide* 28 mmol/L (20-32); Creatinine* 0.7 mg/dL (0.5-1.5); Est. Creatinine Clearance* 50.54; Estimated Glomerular Filt Rate 91 ml/min; Glucose* 91 mg/dL (60-115); Total Protein* 7.1 g/dL (6.0-8.3)
[2024-12-19 13:48] LABS: Cholesterol* 144 mg/dL (90-199); Triglycerides* 109 mg/dL (40-149)
[2024-12-19 13:49] LABS: HDL Cholesterol* 47 mg/dL (>=50)
--- NOTE | 2024-12-19 15:09 | ONC.NURNOTE ---
lab results reviewed by Dr Pa and called to patient- no changes, labs stable, next appts reviewed and dose reviewed
[2025-02-20 13:24] LABS: Hematocrit 44.7 % (33.0-51.0); Hemoglobin* 14.6 gm/dL (12.0-16.0); Immature Granulocytes Abs Auto 0.02 K/uL (0.00-0.30); Immature Granulocytes Pct Auto 0.3 %; Lymphocytes Absolute Auto 1.57 K/uL (0.90-2.90); Mean Corpuscular HGB Conc 33 gm/dL (32-36); Mean Corpuscular Hemoglobin 32 pg (26-34); Mean Corpuscular Volume 98 fL (80-100); RDW Coefficient of Variation % 16.7 % (11.5-15.5); Red Blood Count 4.56 m/uL (4.00-5.20); White Blood Count* 7.00 K/uL (4.50-11.00)
[2025-02-20 13:28] LABS: Slide Review Reflex No
[2025-02-20 13:45] LABS: Albumin* 4.4 g/dL (3.3-5.0); Chloride* 100 mmol/L (96-114); Sodium* 137 mmol/L (135-149)
[2025-02-20 13:46] LABS: Potassium* 3.6 mmol/L (3.6-5.1)
[2025-02-20 13:48] LABS: Alanine Aminotransferase* 22 U/L (4-35); Alkaline Phosphatase* 79 U/L (40-150); Anion Gap 6 mEq/L (7-15); Aspartate Amino Transferase* 36 U/L (12-35); Bilirubin Total* 0.7 mg/dL (0.1-1.5); Blood Urea Nitrogen* 20 mg/dL (7-30); Calcium* 9.2 mg/dL (8.4-10.6); Carbon Dioxide* 31 mmol/L (20-32); Creatinine* 0.7 mg/dL (0.5-1.5); Est. Creatinine Clearance* 50.54; Estimated Glomerular Filt Rate 91 ml/min; Glucose* 87 mg/dL (60-115); Total Protein* 6.9 g/dL (6.0-8.3)
== END 2025-04-23 23:59 | disposition home or self-care (01) ==
LOC: CCIC 12:45
PROVIDERS: PCP Family Medicine; Referring Provider Family Medicine; Visit Provider Internal Medicine Hematology & Oncology
DX: D45 Polycythemia vera (principal); E78.00 Pure hypercholesterolemia, unspecified; D64.9 Anemia, unspecified; L29.9 Pruritus, unspecified; Z79.82 Long term (current) use of aspirin
CPT/HCPCS: 36415; 80053; 80061; 83615; 85025; 99213; 99214; G0463

== ENCOUNTER 2025-08-02 14:32 | Outpatient (CLI) | payer MEDICARE, SELFPAY ==
--- NOTE | 2025-08-02 10:55 | PM.PROC ---
Procedure Note Time Seen by Provider: 15:15 Date Seen: 08/02/25 Provider Contact Time: 15:55 Date of procedure: 08/02/25 Will [facility] bill your pro fee for this procedure?: Yes Procedure: CRYONEUROLYSIS TREATMENT REPORT REFERRING PROVIDER: Elisabet TREATMENT PROVIDER: Qamar Mccoy PREOPERATIVE DIAGNOSIS: Right knee osteoarthritis POSTOPERATIVE DIAGNOSIS: Right knee osteoarthritis? PROCEDURE: Cryoneurolysis of Multiple Sensory Nerves of the Knee ANESTHESIA: Local INDICATIONS: The patient is a very pleasant 74-year-old female patient with primary osteoarthritis involving the right knee who presents today for cryoneurolysis of multiple sensory nerves to the knee for severe knee pain.?Patient medical history was reviewed. The risks, benefits, treatment alternatives, and complications were discussed with the patient, including but not limited to bleeding, infection, nerve or tissue damage.?Informed consent was obtained. ? PRE-TREATMENT MOTOR ASSESSMENT/PAIN SCORE: Patient was able to demonstrate intact gross motor function with plantarflexion, dorsiflexion, adduction, abduction, hip flexion, and extension of the lower extremity.?Pre-treatment pain score of 6 out of 10 in the right knee. DESCRIPTION OF PROCEDURE: After obtaining informed consent, the patient was brought back to the treatment room and positioned supine on the table.?The right lower extremity was prepped with Chlorhexadine.?We began the procedure by performing our procedural pause.?Once this was completed and verified to be accurate, I began the procedure by identifying the nerves with the use of bedside ultrasound.?After the nerves were identified, the skin was marked and, using 1% lidocaine plain, the area of the nerves were anesthetized. ? After the anesthetic was administered, the Smart Tip 2190 cryoneurolysis needle was inserted into the treatment sites using ultrasound guidance.?Treatment was then initiated on the right lower extremity with the following nerves treated: Superior, superior medial, superior lateral, inferior medial genicular nerves and the infrapatellar branch of the saphenous nerve. At the termination of the treatment, the cryoneurolysis needle was removed with the patient's skin cleansed and Band-Aids in Elia bandage applied. Patient tolerated the procedure without any incident or concern.? Patient was then instructed to stand, mobilize the joint, and was examined to ensure gross motor skills were intact. COMPLICATIONS: None POST-TREATMENT PAIN SCORE: 0 out of 10. Right knee DISPOSITION: Discharge instructions were given to the patient with education on the post-procedure expectations. Patient was instructed to call the Ortho clinic with any post-procedure concerns or questions.
[2025-08-02 14:51] VITALS: BP 153/94; PULSE 65; RESP 14; TEMP 36.8; O2SAT 95
[2025-08-02 16:06] VITALS: BP 165/101; PULSE 63; RESP 16; O2SAT 97
== END 2025-08-02 16:07 | disposition home or self-care (01) ==
LOC: OP CLINIC 14:33
PROVIDERS: PCP Family Medicine; Visit Provider Nurse Anesthetist, Certified Registered
DX: M17.11 Unilateral primary osteoarthritis, right knee (principal)
CPT/HCPCS: 64640; 76942; C9809

== ENCOUNTER 2025-08-08 08:09 | Outpatient (CLI) | payer MEDICARE, SELFPAY ==
[2025-08-08] MEDS: REGADENOSON 0.4 MG/5 ML SYRINGE IVP (09:54)
[2025-08-08] MEDS: SODIUM CHLORIDE 0.9 % (FLUSH) 10 ML SYRINGE IVF (09:54)
[2025-08-08 10:56] VITALS: BP 166/106; PULSE 76; RESP 16; O2SAT 98
--- NOTE | 2025-08-08 11:43 | W.PM.STED ---
Stress Test Note Date Date of test: 08/08/25 Providers Primary care provider: Kenton Aguilar Stress test physician: José Antonio Stress Test Note Stress test ordered: Lexiscan Indication for test: First degree AV block, shortness of breath Stress test medicine: Lexiscan Results discussion: Patient is a nice lady who presents the above test after discussion the risks benefits and side effects she would like to proceed. Pretest EKG shows normal sinus rhythm, with a ventricular rate of 59 and a blood pressure 155/99, PVC is noted. No acute ST wave changes. Review of the cardiac stress test medical history is done, patient would like to proceed using standard Lexiscan walking protocol initially she was able to walk for 3 minutes, we had to stop this could she became somewhat lightheaded. This resolved with sitting down. She did not have any anginal equivalents, conditioning was felt to be poor Impression: Negative electrographic portion of Lexiscan, subjectively negative Follow up suggested: Await nuclear medicine report, clinical correlation with this will be needed, patient left this testing facility in good condition, she recovered very well. There were no complications.
== END 2025-08-08 10:59 | disposition home or self-care (01) ==
LOC: STRESS 08:10
PROVIDERS: PCP Family Medicine; Visit Provider Family Medicine
DX: R06.02 Shortness of breath (principal); R00.2 Palpitations; I44.0 Atrioventricular block, first degree; I10 Essential (primary) hypertension; Z01.818 Encounter for other preprocedural examination; F17.210 Nicotine dependence, cigarettes, uncomplicated
CPT/HCPCS: 78452; 93016; 93017; A9500; J2785

== ENCOUNTER 2025-08-14 09:33 | Day surgery (SDC) | payer MEDICARE, SELFPAY ==
--- NOTE | 2025-08-09 16:07 | ONC.NURNOTE ---
Patient called stating she is having a TKR on ThursdayAugust 14 and wondered about her Hydrea. Patient instructed to stop it now and will resume it after procedure depending on how the healing goes.
[2025-08-14] VITALS (21 sets, daily range): BP systolic 116–157; BP diastolic 74–99; PULSE 54–77; RESP 16–20; TEMP 36.1–37.2; O2SAT 83–99; BMI 31.6
[2025-08-14] MEDS: ACETAMINOPHEN 500 MG TABLET 1000 MG PO ×3 (10:00→23:45)
[2025-08-14] MEDS: OXYCODONE (CR) 10 MG TAB.ER.12H PO (10:00)
[2025-08-14] MEDS: SODIUM CHLORIDE 0.9 % (FLUSH) 10 ML SYRINGE IVF (10:14)
[2025-08-14] MEDS: LACTATED RINGERS 1000 ML 1,000 ML 100 ML IV ×2 (10:14→14:59)
--- NOTE | 2025-08-14 10:51 | W.PM.H&PU ---
History & Physical Update History & Physical Update H&P Reviewed and patient assessed: No changes noted
[2025-08-14] MEDS: MIDAZOLAM HCL 1 MG/ML inj IVP (12:07)
--- NOTE | 2025-08-14 12:28 | SUR.PREOP ---
TIME?OUT:?1207 PT/RN/MDA?VERIFICATION?OF?SURGICAL?SITE,?PROCEDURE,?AND?CONSENT OBTAINED?PRIOR?TO?INVASIVE?PROCEDURE.
--- NOTE | 2025-08-14 12:39 | W.PM.NB ---
Nerve Block Nerve Block Time Seen by Provider: 12:10 Date Seen: 08/14/25 Type of block requested by surgeon for post-operative analgesia: adductor canal Side: right Time out performed: Yes Verification of patient name: Yes Verification of date of : Yes Site marking: site marked Name of person performing procedure: Darius Continuous monitoring Was continuous monitoring of O2 sat, B/P, aviation safety inspector, recorded every 15 minutes?: Yes Procedure Checklist: sterile prep, needles and gloves Ultrasound guided. Images saved: Yes Medications given in 5ml increments after negative aspiration: Marcaine %: 0.25 mL: 15 Needle gauge: 20 Precedex (mcg): 25 Patient tolerated procedure well: Yes Block Charges Block Charge (with Pro Fee): Femoral Nerve Use of Ultrasound Machine for Block: Yes- US Guidance/pain block
--- NOTE | 2025-08-14 12:40 | P.ANES_ITS ---
Anesthesia Charges Start Date/Time Anesthesia Start Date: 08/14/25 Anesthesia Start Time: 12:24 Stop Date/Time Anesthesia Stop Date: 08/14/25 Anesthesia Stop Time: 14:28 Summary Extremes of Age - Over 70 or under 1: MDA Coding CPT Codes CPT Codes: ANESTH KNEE ARTHROPLASTY - 76728 ([id number]) P3 - PATIENT W/SEVERE SYS DISEASE, QK - CLIENT SERVICE EXECUTIVE 2-4 CNCRNT ANES PROC, QX - DISTILLERY WORKER GENERAL SVC W/ MD MED DIRECTION Additional Codes: Summary - Extremes of Age - Over 70 or under 1: MDA ([id number])
--- NOTE | 2025-08-14 12:40 | W.PM.NB ---
Nerve Block Nerve Block Time Seen by Provider: 12:10 Date Seen: 08/14/25 Type of block requested by surgeon for post-operative analgesia: geniculars Side: right Time out performed: Yes Verification of patient name: Yes Verification of date of : Yes Site marking: site marked Name of person performing procedure: Darius Continuous monitoring Was continuous monitoring of O2 sat, B/P, air sampling and monitoring, recorded every 15 minutes?: Yes Procedure Checklist: sterile prep, needles and gloves Ultrasound guided. Images saved: Yes Medications given in 5ml increments after negative aspiration: Marcaine %: 0.25 mL: 9 Needle gauge: 25 Patient tolerated procedure well: Yes Block Charges Block Charge (with Pro Fee): Genicular Nerve Block
--- NOTE | 2025-08-14 12:40 | W.ANESCHARGE ---
Anesthesia Charges Start Date/Time Anesthesia Start Date: 08/14/25 Anesthesia Start Time: 12:24 Stop Date/Time Anesthesia Stop Date: 08/14/25 Anesthesia Stop Time: 14:28 Summary Extremes of Age - Over 70 or under 1: MDA Coding CPT Codes CPT Codes: ANESTH KNEE ARTHROPLASTY - 55193 ([id number]) P3 - PATIENT W/SEVERE SYS DISEASE, QK - PEDIATRIC CARE COORDINATOR 2-4 CNCRNT ANES PROC, QX - DECORATIVE ENGRAVER APPRENTICE SVC W/ MD MED DIRECTION Additional Codes: Summary - Extremes of Age - Over 70 or under 1: MDA ([id number])
--- NOTE | 2025-08-14 12:45 | P.ANES_ITS ---
Anesthesia Charges Start Date/Time Anesthesia Start Date: 08/14/25 Anesthesia Start Time: 12:24 Stop Date/Time Anesthesia Stop Date: 08/14/25 Anesthesia Stop Time: 14:28 Summary Extremes of Age - Over 70 or under 1: MEDICAL TECHNOLOGIST CLINICAL Coding CPT Codes CPT Codes: ANESTH KNEE ARTHROPLASTY - 75624 ([id number]) P3 - PATIENT W/SEVERE SYS DISEASE, QK - HANDY MAN 2-4 CNCRNT ANES PROC, QX - MEDICAL TECHNOLOGIST CLINICAL SVC W/ MD MED DIRECTION Additional Codes: Summary - Extremes of Age - Over 70 or under 1: MEDICAL TECHNOLOGIST CLINICAL ([id number])
--- NOTE | 2025-08-14 12:45 | W.ANESCHARGE ---
Anesthesia Charges Start Date/Time Anesthesia Start Date: 08/14/25 Anesthesia Start Time: 12:24 Stop Date/Time Anesthesia Stop Date: 08/14/25 Anesthesia Stop Time: 14:28 Summary Extremes of Age - Over 70 or under 1: MAINTENANCE OF WAY SUPERINTENDENT Coding CPT Codes CPT Codes: ANESTH KNEE ARTHROPLASTY - 31427 ([id number]) P3 - PATIENT W/SEVERE SYS DISEASE, QK - SUPERVISOR STONE 2-4 CNCRNT ANES PROC, QX - MAINTENANCE OF WAY SUPERINTENDENT SVC W/ MD MED DIRECTION Additional Codes: Summary - Extremes of Age - Over 70 or under 1: MAINTENANCE OF WAY SUPERINTENDENT ([id number])
[2025-08-14] MEDS: TRANEXAMIC ACID 100 MG/ML INJ 1000 MG IV (12:47)
--- NOTE | 2025-08-14 14:04 | P.ORPRC_ITS ---
Procedure Note Date of procedure: 08/14/25 Procedure: PREOPERATIVE DIAGNOSIS: 1. Right knee osteoarthritis, primary, severe POSTOPERATIVE DIAGNOSIS: 1. Right knee osteoarthritis, primary, severe PROCEDURE: 1. Right total knee arthroplasty, Press-Fit, fixed bearing - No tourniquet SURGEON: Bi Best MD. WOOL SAMPLER: SONU Ocampo - Of note, a skilled assistant professor of philosophy was critical for this case to aid in patient positioning, tissue retraction, limb manipulation/positioning, and closure. ANESTHESIA: Spinal anesthetic EBL: 100ml IMPLANTS: DePuy J&J uncemented TKA - Attune PS femur size 4 regular Size 4 tibia fixed bearing 5 mm poly spacer 35 mm Affixium patella TOURNIQUET: None COMPLICATIONS: None evident INDICATIONS: The patient is a pleasant 74-year-old female who has experienced severe right knee pain and difficulty bearing weight. Workup included x-rays which revealed severe osteoarthrosis in the knee. Given the deformity, the dysfunction, and the pain, as well as the failure of nonoperative management, recommendation was made for surgery. FINDINGS: Full-thickness chondral loss diffusely throughout the lateral and patellofemoral compartment and to a lesser degree medial compartment. Degenerative meniscus pathology lateral greater than medial. DESCRIPTION OF PROCEDURE: Following a thorough discussion of risks, benefits, and alternatives consent was obtained and the right knee was marked. The patient was brought to the operating room and placed supine on the operating table. Induction of anesthesia was undertaken. 2 g IV Ancef and 1 g tranexamic acid was administered within 1 hr of incision preoperatively. Proper time-out was performed identifying proper patient, site, procedure. The operative extremity was prepped and draped in the appropriate sterile fashion using ChloraPrep after the patient was positioned supine with all bony prominences well padded. A longitudinal, anterior, midline skin incision was made starting approximately 3cm proximal to the superior pole of the patella and advanced distal to the tibial tubercle. A sub vastus approach was utilized. After mobilizing the patella, the retropatellar fatpad was resected and the synovium in the supr apatellar pouch excised to visualize the anterior femoral cortex. Patellar prep showed initial measurement/thickness of 20 mm. It was resected back to approximately 12.5 mm. The patella prep was completed with drilling and a trial placed followed by a protector plate until final component implantation. Femoral preparation was performed via an intramedullary guide. Step drill allowed access into the femoral canal. The distal cutting guide was placed with 5? of valgus and 11 mm cut on the distal femur. Femur was sized using a anterior referencing guide (in addition to referencing the transepicondylar axis and Melody's line) in 5 ? of external rotation. This was found to have a best fit with the sizing noted above. The 4 in 1 cutting block was then placed, and the distal femur shaped accordingly. The box cut was then completed. We turned our attention to the proximal tibia. Extramedullary guide was utilized for cutting with the goal of being 90 degree cut from the mechanical axis of the tibia in the varus/valgus plane utilizing tibial crest as the primary alignment. Initially a 4 mm resection was performed from the medial tibial plateau. Ultimately, balancing was achieved in both flexion and extension in both varus and valgus. The knee was able to achieve full extension comfortably. It was sized to be a best fit with as noted above. At this stage, trial implants were removed, the tibia and femoral and patellar components were opened and inserted. The real poly spacer was opened and inserted. A 3 min Betadine soak performed. Finally, a final irrigation round with normal saline was performed. Closure performed with 0 PDS and #0 Stratafix for the quad tendon/retinaculum. 2-0 Vicryl/Stratafix for the subcutaneous and 4-0 Monocryl for subcuticular beba sure. Dressings were applied and the patient was awoken from anesthesia and transferred the PACU in stable condition. A skilled assistant professor of philosophy was critical for this case to aid in patient positioning, ti ssue retraction, bone exposure, limb manipulation/positioning, patient safety, and closure. PLAN: 1. Weight bear as tolerated operative extremity. 2. 23 hr perioperative antibiotics. 3. Ice. 4. PT/OT consults for ambulation assistance/mobility education. 5. Social work consult for discharge planning. 6. DVT prophylaxis with at SCDs, and aspirin twice daily.
--- NOTE | 2025-08-14 14:13 | CRLHL7_ITS ---
For Patients: As a result of the Cures Act, medical imaging exams and procedure reports are released immediately into your electronic medical record. You may view this report before your referring provider. If you have questions, please contact your health care provider. Indication: POST OP RIGHT TKA Technique: Two views right knee Findings/Impression: Hardware from a right total knee arthroplasty is in satisfactory position. Bone alignment is normal. No sign of acute fracture. Postop changes are within normal limits. Dictated by Ambrosio Hoffmann MD @ 08/14/2025 3:33:13 PM (Electronically Signed)
--- NOTE | 2025-08-14 14:57 | SUR.PHASEI ---
Patient meets discharge criteria from PACU
--- NOTE | 2025-08-14 15:25 | PM.IMCN1 ---
Date of Consult Patient: [facility] Patient Consult date: 08/14/25 Requesting Physician: Orthopedics Primary Care Provider: Kenton Aguilar MD Consult Narrative Reason for consult: Medical management of comorbidities Narrative: Saskia Pereira is a 74 year old female who presented to the hospital today for an elective R TKA with Dr. Best of Orthopedic Surgery. There were no surgical or anesthetic complications noted during procedure. Patient's H&P reviewed, PCP is Dr. Aguilar. Saw Dr. Silver for preoperative H&P; had a reassuring stress test 08/09/25 Past medical history significant for: Essential HTN, hyperlipidemia, anxiety, polycythemia (NILSA 2 mutation), migraines. History of blood clots: No History of blood transfusions: No Postoperative plan: Home with Smokes 1 pack of cigarettes every 2-3 days; declines nicotine replacement during hospitalization. No alcohol use. Upon arrival to the floor postoperatively, having mild hypoxia and requiring 1-2L of supplemental oxygen. No chest pain, does not feel short of breath. Review of Systems Status of ROS: Reports: 10 or more systems reviewed and unremarkable except as noted in History and below [facility] Medical History (Updated 08/01/25 @ 12:13 by Kaden Silver MD) AV block, 1st degree ?I44.0 - Atrioventricular block, first degree (ICD-10) Itching ?L29.9 - Pruritus, unspecified (ICD-10) Constipation by delayed colonic transit ?K59.01 - Slow transit constipation (ICD-10) Actinic keratoses ?L57.0 - Actinic keratosis (ICD-10) Hip pain ?M25.559 - Pain in unspecified hip (ICD-10) Back pain ?M54.9 - Dorsalgia, unspecified (ICD-10) Lung nodule ?R91.1 - Solitary pulmonary nodule (ICD-10) Chest wall pain ?R07.89 - Other chest pain (ICD-10) Hypercholesterolemia ?E78.00 - Pure hypercholesterolemia, unspecified (ICD-10) Actinic keratosis ?L57.0 - Actinic keratosis (ICD-10) Colon polyps ?K63.5 - Polyp of colon (ICD-10) HTN (hypertension) ?I10 - Essential (primary) hypertension (ICD-10) Seborrheic keratoses ?L82.1 - Other seborrheic keratosis (ICD-10) Osteoarthritis ?M19.90 - Unspecified osteoarthritis, unspecified site (ICD-10) Meniere disease ?H81.09 - Meniere's disease, unspecified ear (ICD-10) Migraine ?G43.909 - Migraine, unspecified, not intractable, without status migrainosus (ICD-10) GERD (gastroesophageal reflux disease) ?K21.9 - Gastro-esophageal reflux disease without esophagitis (ICD-10) COPD (chronic obstructive pulmonary disease) ?J44.9 - Chronic obstructive pulmonary disease, unspecified (ICD-10) Anxiety ?F41.9 - Anxiety disorder, unspecified (ICD-10) Laryngospasms ?J38.5 - Laryngeal spasm (ICD-10) STEPHEN on CPAP ?G47.33 - Obstructive sleep apnea (adult) (pediatric) (ICD-10) ?Z99.89 - Dependence on other enabling machines and devices (ICD-10) Former smoker ?Z87.891 - Personal history of nicotine dependence (ICD-10) Polycythemia vera ?D45 - Polycythemia vera (ICD-10) Surgical History (Updated 08/14/25 @ 15:39 by Elsa Markham MD) Status post right knee replacement ?Z96.651 - Presence of right artificial knee joint (ICD-10) Status post total replacement of right shoulder (~09/2019) ?Z96.611 - Presence of right artificial shoulder joint (ICD-10) History of reverse total replacement of left shoulder joint (~2012) ?Z96.612 - Presence of left artificial shoulder joint (ICD-10) S/P bilateral hip replacements ?Z96.643 - Presence of artificial hip joint, bilateral (ICD-10) S/P appy ?Z90.49 - Acquired absence of other specified parts of digestive tract (ICD-10) Social History (Updated 01/20/25 @ 13:51 by Sherley Sierra~[facility]) What is your current living situation?: I presently have a place to live Problems where you live: no known problems In the past 12 months, utilities in danger of being shut off: no In past 12 months, lack of transportation kept you from medical appts, meetings, work, or getting things needed for daily living: no In the past 12 mos, have been you worried that your food would run out before you had money to buy more?: never true In the past 12 mos, the food you bought just didn't last and you didn't have money to buy more?: never true Smoking Status: Current every day smoker Do you use any of these nicotine containing products: None How often do you have a drink containing alcohol: never AUDIT-C Alcohol total score: 0 Non-prescribed substance use: denies use Caffeine: Yes (1 c/day) How often does anyone, including family, friends and others, physically hurt you: never How often does anyone, including family, friends and others, insult or talk down to you: never How often does anyone, including family, friends and others, threaten you with harm: never How often does anyone, including family, friends and others, scream or curse at you: never service: No Meds Home Medications and Allergies Home Medications ?Medication ?Instructions ?Recorded ?Confirmed ?Type aspirin 81 mg chewable tablet 81 mg PO DAILY 05/08/22 08/14/25 History Held on 08/14/25. Instructions: Resume on 09/15/25. Take prescribed bottle of aspirin twice daily for 1 month postop. epinephrine 0.3 mg/0.3 mL 0.3 mg IM Q5-15M PRN 05/08/22 08/14/25 History injection, auto-injector (EpiPen 2-Juarez) lactase 3,000 unit tablet (Lactaid) 6,000 unit PO QID PRN 05/08/22 08/14/25 History multivitamin with minerals 1 tab PO ONCE 05/08/22 08/14/25 History (Multiple Vitamin-Minerals tablet) sennosides 8.6 mg-docusate sodium 1 tab-cap PO QHS PRN constipation 09/14/24 08/14/25 Rx 50 mg tablet (Senokot-S) #30 tabs Held on 08/14/25. Instructions: Resume on 09/11/25. May resume this medication as previously prescribed once constipation from postop narcotics is no longer an issue. diazepam 2 mg tablet 2 mg PO TID PRN muscle spasm #30 01/20/25 08/14/25 Rx tabs pantoprazole 40 mg tablet,delayed 40 mg PO QDAY #90 tabs 01/20/25 08/14/25 Rx release (Protonix) trazodone 100 mg tablet 100 mg PO QHS #90 tabs 01/20/25 08/14/25 Rx sumatriptan succinate 100 mg tablet 100 mg PO Q2-4H PRN migraine 02/28/25 08/14/25 Rx headache #30 tabs oxybutynin chloride 5 mg tablet 5 mg PO BID Hot flashes #120 tabs 03/14/25 08/14/25 Rx hydroxyzine HCl 25 mg tablet 25 mg PO TID #240 tabs 03/21/25 08/14/25 Rx gabapentin 100 mg capsule 200 mg (2 x 100 mg) PO QHS #120 03/27/25 08/14/25 Rx caps hydroxyurea 500 mg capsule (Hydrea) 500 mg PO .COMPLEX #100 caps 05/31/25 08/14/25 Rx rosuvastatin 10 mg tablet 10 mg PO DAILY #90 tabs 06/21/25 08/14/25 Rx paroxetine HCl 30 mg tablet 60 mg (2 x 30 mg) PO QDAY #180 tabs 07/27/25 08/14/25 Rx naproxen sodium 220 mg capsule 440 mg PO HS 08/01/25 08/14/25 History (Aleve) Held on 08/14/25. Instructions: Resume on 09/18/25. acetaminophen 500 mg capsule 500 - 1,000 mg (1 - 2 x 500 mg) PO 08/14/25 Rx Q6H PRN #100 caps aspirin 81 mg tablet,delayed 81 mg PO BID #60 tabs 08/14/25 Rx release losartan 100 1 tab PO DAILY 08/14/25 08/14/25 History mg-hydrochlorothiazide 25 mg tablet meloxicam 15 mg tablet 15 mg PO DAILY 08/14/25 08/14/25 History Held on 08/14/25. Instructions: Resume on 09/18/25. metoprolol succinate 100 mg 100 mg PO DAILY 08/14/25 08/14/25 History tablet,extended release 24 hr nortriptyline 10 mg capsule 10 - 20 mg PO HS 08/14/25 08/14/25 History oxycodone 5 mg tablet 2.5 - 5 mg (0.5 - 1 x 5 mg) PO 08/14/25 Rx Q4-6H PRN pain #42 tabs sennosides 8.6 mg-docusate sodium 1 - 4 tab-cap (1 - 4 x 8.6-50 mg) 08/14/25 Rx 50 mg tablet (Senna-S) PO BID PRN constipation #60 tabs triamterene 37.5 1 cap PO DAILY 08/14/25 08/14/25 History mg-hydrochlorothiazide 25 mg capsule Allergies Allergy/AdvReac Type Severity Reaction Status Date / Time bee venom Allergy Severe Swelling Uncoded 08/10/25 11:23 of Lip/Tongue/Throat Exam Narrative: Exam Narrative: GEN: Alert and sitting comfortably in bed, answering questions appropriately HEENT: EOMIs bilaterally, no scleral icterus CV: RRR, no concerning murmurs noted R: LCTA bilaterally Ext: wwp, no concerning edema Skin: No concerning skin lesions or rashes on exposed skin Neuro: Nonfocal Psych: Appropriate Const: Vital Signs, click to edit/add: Vital Signs - 24 hr 08/14/25 10:43 08/14/25 12:07 08/14/25 12:15 Temperature 98.9 F Pulse Rate 62 60 55 L Respiratory Rate 16 16 16 Blood Pressure 141/99 H 141/93 H 155/88 H Pulse Oximetry 99 99 94 Oxygen Delivery Me thod Room Air Nasal Cannula Nasal Cannula Oxygen Flow Rate 3 5 08/14/25 14:23 08/14/25 14:30 08/14/25 14:35 Temperature 97.7 F Pulse Rate 62 55 L 55 L Respiratory Rate 16 16 16 Blood Pressure 116/74 120/76 120/80 Pulse Oximetry 92 89 98 Oxygen Delivery Me thod Aerosol Mask Oxygen Flow Rate 6 08/14/25 14:40 08/14/25 14:45 08/14/25 14:50 Temperature 97.5 F L Pulse Rate 61 57 L 56 L Respiratory Rate 18 16 16 Blood Pressure 133/89 140/81 H 131/85 Pulse Oximetry 99 92 90 Oxygen Delivery Me thod Room Air Room Air Room Air Oxygen Flow Rate Assessment and Plan Assessment and plan (1) Status post right knee replacement: Problem comment: - 08/14/25, Dr. Best Status: Acute (2) HTN (hypertension): Status: Acute (3) Anxiety: Status: Acute (4) Hypercholesterolemia: Status: Acute (5) GERD (gastroesophageal reflux disease): Status: Acute Plan - pain management and prophylaxis per orthopedic surgery team - continue home medications for comorbidities - anticipate routine postoperative course
[2025-08-14] MEDS: CEFAZOLIN 2 GM in 0.9 % SODIUM CHLORIDE Mini-bag 100 ML IVPB (19:40)
[2025-08-14] MEDS: GABAPENTIN 100 MG CAPSULE 200 MG PO (21:15)
[2025-08-14] MEDS: ASPIRIN 81 MG TABLET EC PO (21:15)
[2025-08-14] MEDS: SENNOSIDES 1 TAB TABLET 2 TAB PO (21:16)
[2025-08-14] MEDS: TRAZODONE HCL 50 MG TABLET 100 MG PO (22:00)
[2025-08-15 03:27] VITALS: BP 116/73; PULSE 64; RESP 18; TEMP 36.6; O2SAT 90
[2025-08-15] MEDS: CEFAZOLIN 2 GM in 0.9 % SODIUM CHLORIDE Mini-bag 100 ML IVPB ×2 (03:28→10:48)
[2025-08-15] MEDS: OMEPRAZOLE 20 MG CAPSULE DR 40 MG PO (06:35)
[2025-08-15] MEDS: ACETAMINOPHEN 500 MG TABLET 1000 MG PO (06:35)
--- NOTE | 2025-08-15 07:02 | PC.NURSE ---
End of shift: Pt pleasant, alert and oriented. O2 sats remained above 88% with 2L NC and Cpap. Pt stated having issues with O2 after previous surgery as well. Otherwise, VSS. Pain rated 8/10, prn oxy given, pt stated improvement. Dressing C/D/I. Pt up with SBA, walker and gait belt. Pt in bed, appears to be resting, call light within reach.?
[2025-08-15 07:45] VITALS: RESP 18; O2SAT 90
[2025-08-15 07:50] VITALS: BP 138/87; PULSE 67; RESP 16; TEMP 36.8; O2SAT 90
[2025-08-15] MEDS: METOPROLOL SUCCINATE (XL) 100 MG TAB PO (08:55)
[2025-08-15] MEDS: SENNOSIDES 1 TAB TABLET 2 TAB PO (08:57)
[2025-08-15] MEDS: ASPIRIN 81 MG TABLET EC PO (08:57)
[2025-08-15] MEDS: ROSUVASTATIN CALCIUM 10 MG TABLET PO (08:57)
--- NOTE | 2025-08-15 10:02 | PM.ORPN ---
Subjective Subjective Date Seen: 08/15/25 Principal diagnosis: Status postop day 1 right total knee arthroplasty Interval history: Patient reports not feeling great regarding the pain in her right knee. States that the pain is from her ankle all the way up to her hip. No burning or shooting pain such as from her back. She does have a history of back pain though without radiculopathy. No acute events over night. Pain managed with scheduled and PRN medications, ice. DVT prophylaxis: 81 mg aspirin by mouth twice daily, SCDs, walking. Denies fevers, chills, aches, N/V, CP, SOB/HANNAH, or lightheadedness. present during visit. Ortho Exam Narrative Exam Narrative: -Patient appears comfortable; no apparent acute distress. She is not in obvious significant pain. -Alert and oriented times 3 -Operative knee moderately swollen; soft tissues supple; no ecchymosis; no erythematous streaking Warmth appropriate -Surgical dressing clean, dry, intact; no drainage -Bilateral calfs soft; no significant swelling, edema, tenderness, erythema, discoloration, warmth, or palpable cords -2+ DP/PT pulses, intact dermatomes and myotomes distally (5/5 strength) Const Vital Signs, click to edit/add: Vital Signs - 24 hr 08/14/25 10:43 08/14/25 12:07 08/14/25 12:15 Temperature 98.9 F Pulse Rate 62 60 55 L Respiratory Rate 16 16 16 Blood Pressure 141/99 H 141/93 H 155/88 H Pulse Oximetry 99 99 94 Oxygen Delivery Method Room Air Nasal Cannula Nasal Cannula Oxygen Flow Rate 3 5 08/14/25 14:23 08/14/25 14:30 08/14/25 14:35 Temperature 97.7 F Pulse Rate 62 55 L 55 L Respiratory Rate 16 16 16 Blood Pressure 116/74 120/76 120/80 Pulse Oximetry 92 89 98 Oxygen Delivery Method Aerosol Mask Oxygen Flow Rate 6 08/14/25 14:40 08/14/25 14:45 08/14/25 14:50 Temperature 97.5 F L Pulse Rate 61 57 L 56 L Respiratory Rate 18 16 16 Blood Pressure 133/89 140/81 H 131/85 Pulse Oximetry 99 92 90 Oxygen Delivery Method Room Air Room Air Room Air Oxygen Flow Rate 08/14/25 15:10 08/14/25 15:25 08/14/25 15:40 Temperature 97.0 F L 97.0 F L 97.0 F L Pulse Rate 55 L 57 L 54 L Respiratory Rate 18 20 20 Blood Pressure 143/87 H 142/88 H 143/86 H Pulse Oximetry 94 83 L 94 Oxygen Delivery Method Nasal Cannula Room Air Nasal Cannula Oxygen Flow Rate 2 2 08/14/25 15:55 08/14/25 16:25 08/14/25 16:55 Temperature 97.0 F L 97.7 F 97.6 F Pulse Rate 56 L 55 L 61 Respiratory Rate 20 20 20 Blood Pressure 144/80 H 157/88 H 147/86 H Pulse Oximetry 92 92 92 Oxygen Delivery Method Nasal Cannula Nasal Cannula Nasal Cannula Oxygen Flow Rate 2 2 2 08/14/25 17:55 08/14/25 18:55 08/14/25 19:47 Temperature 97.8 F 97.8 F 97.9 F Pulse Rate 77 64 63 Respiratory Rate 20 20 16 Blood Pressure 152/96 H 145/86 H 144/97 H Pulse Oximetry 93 93 93 Oxygen Delivery Method Nasal Cannula Nasal Cannula Nasal Cannula Oxygen Flow Rate 2 2 2 08/14/25 20:55 08/14/25 23:00 08/14/25 23:00 Temperature 97.7 F Pulse Rate 74 Respiratory Rate 16 Blood Pressure 121/85 Pulse Oximetry 91 90 90 Oxygen Delivery Method Nasal Cannula Oxygen Flow Rate 2 08/14/25 23:00 08/14/25 23:42 08/15/25 03:27 Temperature 97.3 F L 97.9 F Pulse Rate 64 64 Respiratory Rate 16 16 18 Blood Pressure 118/80 116/73 Pulse Oximetry 90 90 Oxygen Delivery Method Oxygen Flow Rate 08/15/25 07:45 08/15/25 07:45 08/15/25 07:45 Temperature Pulse Rate Respiratory Rate 18 18 Blood Pressure Pulse Oximetry 90 90 Oxygen Delivery Method Room Air Oxygen Flow Rate 08/15/25 07:50 Temperature 98.2 F Pulse Rate 67 Respiratory Rate 16 Blood Pressure 138/87 Pulse Oximetry 90 Oxygen Delivery Method Room Air Oxygen Flow Rate Assessment and Plan Assessment and plan (1) Status post right knee replacement: Problem details: - 08/14/25, Dr. Best, Press-Fit, no tourniquet Status: Acute (2) HTN (hypertension): Status: Acute (3) Anxiety: Status: Acute (4) Hypercholesterolemia: Status: Acute (5) GERD (gastroesophageal reflux disease): Status: Acute Plan - Complete 23 hour perioperative antibiotics. - PT/OT consult for education and assistance. - Social work consult for discharge planning - Prescribed analgesics as needed - continue to take oxycodone for pain, acetaminophen for pain, ice, and motion. - DVT prophylaxis: 81 mg aspirin by mouth twice daily, walking, and SCDs - Anticipation is for discharge to home with today 08/15/2025 if the patient remains medically stable, pain is controlled, and they are safe with mobilization.
--- NOTE | 2025-08-15 12:09 | PC.SOCIAL ---
Social Service Consult: SW met with patient to determine if there were any needs/supports patient has when she discharges home. Patient states that she has everything that she would need and expressed no concerns. SW to assist if needs/concerns arise.
--- NOTE | 2025-08-15 12:53 | PC.NURSE ---
The patient discharged home with this afternoon. All discharge instructions were reviewed. All questions were answered and S/S of infection were addressed as well. The patients pain is moderate-severe post therapy. Ice and PO PRN medications help to manage the patients pain. R knee dressing is CDI. Moderately swollen. Jessica CROWELL BSN
== END 2025-08-15 12:15 | disposition home or self-care (01) ==
LOC: OR 09:35 → MEDSURG 09:35
PROVIDERS: PCP Family Medicine; Visit Provider Orthopaedic Surgery Sports Medicine
PROC: (CPT 27447; principal; 2025-08-14 11:45)
DX: M17.11 Unilateral primary osteoarthritis, right knee (principal); G89.18 Other acute postprocedural pain; R09.02 Hypoxemia; J44.9 Chronic obstructive pulmonary disease, unspecified; G47.33 Obstructive sleep apnea (adult) (pediatric); Z99.89 Dependence on other enabling machines and devices; I10 Essential (primary) hypertension; D45 Polycythemia vera; F41.9 Anxiety disorder, unspecified; K21.9 Gastro-esophageal reflux disease without esophagitis; E78.00 Pure hypercholesterolemia, unspecified
CPT/HCPCS: 27447; 01402; 64447; 64454; 73560; 76942; 94761; 97110; 97116; 97161; 97165; 97530; 97535; 99100; A9270; C1776; J0665; J0690; J1100; J1171; J2250; J2371; J2405; J2704; J3010; J7120

== ENCOUNTER 2025-09-21 14:20 | Outpatient (CLI) | payer MEDICARE, SELFPAY ==
--- NOTE | 2025-09-21 14:45 | CRLHL7_ITS ---
For Patients: As a result of the Century Cures Act, medical imaging exams and procedure reports are released immediately into your electronic medical record. You may view this report before your referring provider. If you have questions, please contact your health care provider. INDICATION: Presence of artificial knee joint COMPARISON: None. TECHNIQUE: A compression venous ultrasound exam was performed of the right lower extremity using nielsen-scale imaging, color Doppler and spectral Doppler analysis. FINDINGS: Sonographic imaging of the right lower extremity demonstrates normal compressibility and color Doppler venous blood flow within the common femoral vein, deep femoral vein, and the proximal greater saphenous vein. Within the thigh, the femoral vein is patent and compressible. At a lower level, the popliteal and posterior tibial veins also show normal compressibility and color Doppler venous blood flow. Limited imaging of the contralateral groin demonstrates a normal spectral waveform and color Doppler venous blood flow within the left common femoral vein. IMPRESSION: No evidence of deep vein thrombosis within the right lower extremity. Dictated by Ambrosio Hoffmann MD @ 09/21/2025 3:40:29 PM (Electronically Signed)
== END 2025-09-21 14:21 | disposition home or self-care (01) ==
PROVIDERS: PCP Family Medicine; Visit Provider Physician Assistant Surgical
DX: M79.89 Other specified soft tissue disorders (principal); Z96.651 Presence of right artificial knee joint
CPT/HCPCS: 93971